=== PATIENT | female | born 1975 | race Caucasian/White ===

== ENCOUNTER → 2017-10-02 | Emergency (ER) | payer OTHER ==
[~2017-10-02] VITALS: Ht 167.6 cm; Wt 58.1 kg
[~2017-10-02] MED LIST: SYNTHROID112 MCG
== END | disposition left against medical advice (07) ==
LOC: ER 08:17
DX: Z53.20 Procedure and treatment not carried out because of patient's decision for unspecified reasons (principal)

== ENCOUNTER 2021-12-04 16:59 | Emergency (ER) | payer OTHER ==
[~2021-12-04] VITALS: Ht 167.6 cm; Wt 58.1 kg
[2021-12-04] MEDS ORDERED: SYNTHROID125 MCG PO (17:09)
== END 2021-12-04 18:17 | disposition home or self-care (01) ==
LOC: ER 16:59
DX: S51.812A Laceration without foreign body of left forearm, initial encounter (principal); W18.39XA Other fall on same level, initial encounter; Y93.9 Activity, unspecified; Y92.017 Garden or yard in single-family (private) house as the place of occurrence of the external cause; Y99.9 Unspecified external cause status

== ENCOUNTER 2021-12-11 10:44 | Emergency (ER) | payer OTHER ==
[~2021-12-11] VITALS: Ht 167.6 cm; Wt 58.1 kg
[~2021-12-11 10:44] MED LIST changes: +SYNTHROID125 MCG PO
== END 2021-12-11 12:09 | disposition home or self-care (01) ==
LOC: ER 10:44
DX: Z48.02 Encounter for removal of sutures (principal)

== ENCOUNTER 2021-12-18 10:55 | Emergency (ER) | payer OTHER ==
[~2021-12-18] VITALS: Ht 167.6 cm; Wt 58.1 kg
[2021-12-18] MEDS ORDERED: TRI-LO-MARZIA1 EACH (11:06)
== END 2021-12-18 12:41 | disposition home or self-care (01) ==
LOC: ER 10:55
DX: Z48.02 Encounter for removal of sutures (principal)